=== PATIENT | female | born 1975 | race African-American/Black ===

== ENCOUNTER → 2016-05-26 | Outpatient (CLI) | payer MEDICARE, OTHER ==
[2016-05-26 16:43] LABS: BASO % 1 % (0-3); EOS % 1 % (0-3); HEMATOCRIT 41.6 % (36.0-47.0); HEMOGLOBIN 13.3 g/dL (12.0-15.5); LYMPH # 1.7 x10^3/uL (1.0-4.8); LYMPH % 28 % (24-48); MEAN CORPUSCULAR HEMOGLOBIN 27 pg (25-35); MEAN CORPUSCULAR HGB CONC 32 g/dL (31-37); MEAN CORPUSCULAR VOLUME 85 fL (79-100); MONO % 6 % (0-9); NEUT % 66 % (31-73); PLATELET COUNT 82 x10^3/uL (140-400); RED BLOOD COUNT 4.91 x10^6/uL (3.50-5.40); RED CELL DISTRIBUTION WIDTH 16.2 % (11.5-14.5); WHITE BLOOD COUNT 6.1 x10^3/uL (4.0-11.0)
[2016-05-26 17:04] LABS: ALBUMIN 3.3 g/dL (3.4-5.0); DIRECT BILIRUBIN 0.1 mg/dL (0.0-0.2); TOTAL BILIRUBIN 0.4 mg/dL (0.2-1.0); TOTAL PROTEIN 7.1 g/dL (6.4-8.2)
== END | disposition home or self-care (01) ==
LOC: LAB 16:26
PROVIDERS: ATTEND Internal Medicine Critical Care Medicine
DX: I27.0 Primary pulmonary hypertension (principal); R10.2 Pelvic and perineal pain; Z79.899 Other long term (current) drug therapy
CPT/HCPCS: 36415; 80076; 84702; 85027

== ENCOUNTER → 2016-06-23 | Outpatient (CLI) | payer MEDICARE, OTHER ==
[2016-06-23 14:54] LABS: BASO % 1 % (0-3); EOS % 1 % (0-3); HEMATOCRIT 41.8 % (36.0-47.0); HEMOGLOBIN 13.6 g/dL (12.0-15.5); LYMPH # 1.8 x10^3/uL (1.0-4.8); LYMPH % 30 % (24-48); MEAN CORPUSCULAR HEMOGLOBIN 28 pg (25-35); MEAN CORPUSCULAR HGB CONC 33 g/dL (31-37); MEAN CORPUSCULAR VOLUME 85 fL (79-100); MONO % 5 % (0-9); NEUT % 64 % (31-73); PLATELET COUNT 103 x10^3/uL (140-400); RED BLOOD COUNT 4.91 x10^6/uL (3.50-5.40); RED CELL DISTRIBUTION WIDTH 16.7 % (11.5-14.5)
[2016-06-23 15:03] LABS: ALBUMIN 3.4 g/dL (3.4-5.0); DIRECT BILIRUBIN 0.2 mg/dL (0.0-0.2); TOTAL BILIRUBIN 0.5 mg/dL (0.2-1.0); TOTAL PROTEIN 6.8 g/dL (6.4-8.2)
== END | disposition home or self-care (01) ==
LOC: LAB 14:18
PROVIDERS: ATTEND Internal Medicine Critical Care Medicine
DX: Z79.899 Other long term (current) drug therapy (principal); R10.2 Pelvic and perineal pain; I27.0 Primary pulmonary hypertension
CPT/HCPCS: 36415; 80076; 84702; 85027

== ENCOUNTER → 2017-03-15 | Outpatient (CLI) | payer MEDICARE, OTHER ==
[2017-03-15 17:15] LABS: ADD MAN DIFF? NO
[2017-03-15 17:24] LABS: BASO % 1 % (0-3); EOS % 1 % (0-3); HEMATOCRIT 28.5 % (36.0-47.0); HEMOGLOBIN 8.8 g/dL (12.0-15.5); LYMPH # 0.9 x10^3/uL (1.0-4.8); LYMPH % 14 % (24-48); MEAN CORPUSCULAR HEMOGLOBIN 26 pg (25-35); MEAN CORPUSCULAR HGB CONC 31 g/dL (31-37); MEAN CORPUSCULAR VOLUME 83 fL (79-100); MONO # 0.3 x10^3/uL (0.0-1.1); MONO % 6 % (0-9); NEUT # 4.7 x10^3uL (1.8-7.7); NEUT % 79 % (31-73); PLATELET COUNT 55 x10^3/uL (140-400); RED BLOOD COUNT 3.44 x10^6/uL (3.50-5.40); RED CELL DISTRIBUTION WIDTH 20.3 % (11.5-14.5)
[2017-03-15 17:37] LABS: ANION GAP 11 (6-14); BLOOD UREA NITROGEN 18 mg/dL (7-20); CALCIUM 7.8 mg/dL (8.5-10.1); CARBON DIOXIDE 25 mmol/L (21-32); CHLORIDE 98 mmol/L (98-107); CREATININE 1.5 mg/dL (0.6-1.0); GFR 46.3; GLUCOSE 86 mg/dL (70-99); POTASSIUM 3.9 mmol/L (3.5-5.1); SODIUM 134 mmol/L (136-145)
[2017-03-15 17:43] LABS: PLT ESTIMATE DECREASED (ADEQUATE)
[2017-03-15 17:44] LABS: ANISOCYTOSIS MOD; POLYCHROMASIA SLIGHT
== END | disposition home or self-care (01) ==
LOC: LAB 17:02
DX: I27.0 Primary pulmonary hypertension (principal); Z79.899 Other long term (current) drug therapy
CPT/HCPCS: 36415; 80048; 85025

== ENCOUNTER → 2018-06-14 | Outpatient (CLI) | payer MEDICARE, OTHER ==
[2018-06-14 15:33] LABS: FREE T4 0.9 ng/dL (0.76-1.46); THYROID STIM HORMONE (TSH) 1.474 uIU/mL (0.358-3.74)
== END | disposition home or self-care (01) ==
LOC: LAB 14:36
PROVIDERS: ATTEND Internal Medicine
DX: E05.90 Thyrotoxicosis, unspecified without thyrotoxic crisis or storm (principal)
CPT/HCPCS: 36415; 84439; 84443